=== PATIENT | female | born 1980 | race Caucasian/White ===

== ENCOUNTER 2020-04-15 07:31 | Emergency (ER) | payer OTHER, MEDICAID ==
[~2020-04-15] VITALS: Ht 152.4 cm; Wt 59.0 kg
[2020-04-15] MEDS ORDERED: MEDROLDOSEPACK PO (08:01)
[2020-04-15] MEDS ORDERED: FLEXERIL PO (08:01)
[2020-04-15 08:21] VITALS: BP 168/72
== END 2020-04-15 08:22 | disposition home or self-care (01) ==
LOC: M.ERS 07:31
DX: M54.12 Radiculopathy, cervical region (principal); M62.838 Other muscle spasm; Z88.2 Allergy status to sulfonamides; Z88.5 Allergy status to narcotic agent

== ENCOUNTER 2020-07-28 16:08 | Emergency (ER) | payer OTHER, MEDICAID ==
[~2020-07-28] VITALS: Ht 152.4 cm; Wt 61.2 kg
[~2020-07-28 16:08] MED LIST: FLEXERIL PO; MEDROLDOSEPACK PO
[2020-07-28] MEDS ORDERED: LISINOPRIL10 MG PO (16:31)
[2020-07-28] MEDS ORDERED: FENOFIBRATE160 MG PO (16:31)
[2020-07-28 16:39] LABS: URINE BILIRUBIN NEGATIVE (Negative); URINE BLOOD NEGATIVE (Negative); URINE CLARITY CLEAR; URINE COLOR YELLOW; URINE GLUCOSE-RANDOM NEGATIVE (Negative); URINE KETONES NEGATIVE (Negative); URINE LEUKOCYTES-REFLEX NEGATIVE (Negative); URINE NITRITE-REFLEX NEGATIVE (Negative); URINE PROTEIN NEGATIVE (Negative); URINE UROBILINOGEN 0.2 E.U./dl (0.2-1.0)
[2020-07-28 16:47] LABS: ABSOLUTE BASOPHILS 0.1 thou/uL (0.0-0.2); ABSOLUTE EOSINOPHILS 0.1 thou/uL (0.0-0.7); ABSOLUTE LYMPHOCYTES 2.3 thou/uL (0.8-5.3); ABSOLUTE MONOCYTES 0.5 thou/uL (0.0-1.2); ABSOLUTE NEUTROPHILS 6.4 thou/uL (1.6-8.1); BASOPHILS 1.2 %; EOSINOPHILS 1.3 %; HEMATOCRIT 48.3 % (37.0-47.0); HEMOGLOBIN 16.6 gm/dL (12.0-15.0); LYMPHOCYTES 24.6 %; MCH 32.4 pg (26.0-34.0); MCHC 34.3 g/dL (28.0-37.0); MCV 94.7 fL (80.0-100.0); MONOCYTES 5.2 %; MPV 7.9 fl. (7.2-11.1); NUCLEATED RBCS 0 /100WBC; PLATELET COUNT* 293 thou/uL (150-400); POLYS 67.7 %; RBC 5.11 mil/uL (4.20-5.00); RDW-CV 14.1 % (10.5-14.5); WBC 9.4 thou/uL (4.0-11.0)
[2020-07-28 17:00] LABS: CALCIUM 9.5 mg/dL (8.5-10.1); CREATININE 0.7 mg/dL (0.6-1.3); POTASSIUM 3.8 mmol/L (3.5-5.1)
[2020-07-28 17:03] LABS: ALBUMIN 4.2 g/dL (3.4-5.0); TOTAL BILIRUBIN 0.5 mg/dL (<0.1-1.0); TOTAL PROTEIN 8.5 g/dL (6.4-8.2)
[2020-07-28 17:03] LABS: AMP/METHAMP Negative (Negative); BARBITURATES Negative (Negative); BENZODIAZEPINES Negative (Negative); COCAINE Negative (Negative); METHADONE Negative (Negative); OPIATES Negative (Negative); PCP Negative (Negative); THC POSITIVE (Negative)
[2020-07-28] MEDS ORDERED: ONDANSETRON HCL4 M2 PO ×2 (19:25)
[2020-07-28] MEDS ORDERED: OMEPRAZOLE 20 M20 M1 PO ×2 (19:25)
[2020-07-28] MEDS ORDERED: NORCO5 PO ×2 (19:25)
[2020-07-28 20:16] VITALS: BP 135/88
--- NOTE | 2020-07-29 12:44 | EKG ---
[place] [address] ELECTROCARDIOGRAM REPORT Name: EUGENE JUAREZ Room: [facility]#: [id number] Admission: 07/28/20 Attend Phys: Discharge: 07/28/20 Date of : 76 Date of Service: 07/28/20 1649 Report #: [id number] THIS REPORT FOR: //name// [facility] ED Test Date: 2020-07-28 Test Time: 16:49:48 Pat Name: EUGENE JUAREZ Department: Room: Gender: F [employer] App[employer]ice: CCD : 1980 Requested By: Neida Fisher Order Number: [id number] MD: Franco Daily Measurements Intervals Bowman Rate: 114 P: 27 NV: 161 QRS: 32 QRSD: 94 T: -17 QT: 334 QTc: 461 Interpretive Statements Sinus tachycardia Borderline T abnormalities, inferior leads No previous ECG available for comparison Electronically Signed On 07-29-2020 12:43:55 CDT by Franco Daily [email or web address] <ELECTRONICALLY SIGNED> By: Franco Daily MD, [facility] 07/29/20 1243 1649 1649 Franco Daily MD, [facility] /EPI
== END 2020-07-28 20:18 | disposition home or self-care (01) ==
LOC: M.ERS 16:08
PROVIDERS: Nurse Practitioner Family
DX: K62.5 Hemorrhage of anus and rectum (principal); R11.10 Vomiting, unspecified; R19.7 Diarrhea, unspecified; R10.13 Epigastric pain; I10 Essential (primary) hypertension; E78.5 Hyperlipidemia, unspecified; Z88.5 Allergy status to narcotic agent; Z88.2 Allergy status to sulfonamides; Z79.899 Other long term (current) drug therapy; Z85.048 Personal history of other malignant neoplasm of rectum, rectosigmoid junction, and anus

== ENCOUNTER → 2020-09-01 | Outpatient (CLI) | payer OTHER, MEDICAID ==
[~2020-09-01] MED LIST changes: +FENOFIBRATE160 MG PO; +LISINOPRIL10 MG PO; +NORCO5 PO; +OMEPRAZOLE 20 M20 M1 PO; +ONDANSETRON HCL4 M2 PO
== END ==
LOC: M.RAD 10:43
PROVIDERS: ATTEND Nurse Practitioner Family
DX: M25.561 Pain in right knee (principal)

== ENCOUNTER → 2020-09-23 | Outpatient (CLI) | payer OTHER, MEDICAID | LOC: M.RAD 10:19 | PROVIDERS: ATTEND Nurse Practitioner Family | DX: R05 Cough (principal) ==

== ENCOUNTER 2020-10-25 10:41 | Emergency (ER) | payer OTHER, MEDICAID ==
[~2020-10-25] VITALS: Ht 152.4 cm; Wt 63.5 kg
[2020-10-25] MEDS ORDERED: VENTOLIN HFA 1818 GM INH (11:12)
[2020-10-25] MEDS ORDERED: AUGMENTIN 875-1 EACH PO (11:12)
[2020-10-25 11:28] VITALS: BP 135/93
== END 2020-10-25 11:19 | disposition home or self-care (01) ==
LOC: M.ERS 10:41
DX: J01.90 Acute sinusitis, unspecified (principal); J20.9 Acute bronchitis, unspecified; H92.01 Otalgia, right ear; E78.5 Hyperlipidemia, unspecified; I10 Essential (primary) hypertension; Z88.5 Allergy status to narcotic agent; Z88.2 Allergy status to sulfonamides; Z88.8 Allergy status to other drugs, medicaments and biological substances

== ENCOUNTER → 2020-11-26 | Outpatient (CLI) | payer OTHER, MEDICAID ==
[~2020-11-26] MED LIST changes: +AUGMENTIN 875-1 EACH PO; +VENTOLIN HFA 1818 GM INH
== END ==
LOC: M.ULTRA 07:19
PROVIDERS: ATTEND Nurse Practitioner Family
DX: K11.1 Hypertrophy of salivary gland (principal)

== ENCOUNTER 2020-12-19 13:31 | Emergency (ER) | payer OTHER, MEDICAID ==
[~2020-12-19] VITALS: Ht 152.4 cm; Wt 59.0 kg
[2020-12-19] MEDS ORDERED: AUGMENTIN 875-1 EACH PO (14:37)
[2020-12-19 14:50] VITALS: BP 143/89
== END 2020-12-19 14:51 | disposition home or self-care (01) ==
LOC: M.ERS 13:31
DX: J01.90 Acute sinusitis, unspecified (principal); F17.210 Nicotine dependence, cigarettes, uncomplicated; Z20.822 Contact with and (suspected) exposure to COVID-19; Z88.2 Allergy status to sulfonamides; Z88.5 Allergy status to narcotic agent; Z88.8 Allergy status to other drugs, medicaments and biological substances